=== PATIENT | male | born 1940 | race Two or more races ===

== ENCOUNTER 2022-04-15 06:48 | Day surgery (SDC) | payer MEDICARE, MEDICAID ==
[2022-04-14 10:57] LABS: Basophils # (auto) 0 10 ^3/uL (0-0.2); Basophils % (auto) 0.6 % (0.0-2.0); Eosinophils # (auto) 0.1 10 ^3/uL (0-0.8); Eosinophils % (auto) 1.8 % (0.0-7.0); Hematocrit 35.1 % (41.0-53.0); Hemoglobin 11.9 g/dL (13.5-17.5); Lymphocytes # (auto) 1.3 10 ^3/uL (0.4-5.4); Mean Corpuscular Hemoglobin 31.4 pg (28.0-32.0); Mean Corpuscular Volume 92.3 fL (80.0-100.0); Monocytes # (auto) 0.3 10 ^3/uL (0-1.3); Monocytes % (auto) 5.2 % (0.0-12.0); Neutrophils # (auto) 4.9 10 ^3/uL (1.6-8.6); Neutrophils % (auto) 73.4 % (37.0-80.0); Nucleated Red Blood Cells % 0.1 %; White Blood Cell 6.7 10^3/uL (4.4-10.8)
[2022-04-14 10:59] LABS: Urine Bacteria NONE SEEN /hpf (None Seen); Urine Blood Negative /uL (Negative); Urine Hyaline Cast MANY /lpf (0 - 2); Urine Specific Gravity 1.017 (1.001-1.035); Urine WBC 1 /hpf (0 - 3)
[2022-04-14 11:16] LABS: INR 0.97 (0.9-1.15); Partial Thromboplastin Time 26.8 sec (24.6-33.4)
[2022-04-14 12:13] LABS: Potassium 5.4 mmol/L (3.5-5.1)
[2022-04-14 12:34] LABS: BUN/Creatinine Ratio 15.9; Bilirubin, Total 0.6 mg/dL (0.2-1.0); Calcium 8.9 mg/dL (8.5-10.1); Total Protein 7.5 g/dL (6.4-8.2)
[~2022-04-15] VITALS: Ht 177.8 cm; Wt 86.2 kg
[~2022-04-15 06:48] MED LIST: ATOR10TA52 PO; INSLANTI SC; METF-489 PO; MULT-777 OR; TAMS0.4C36 PO
[2022-04-15] MEDS ORDERED: ONDANSETRON HCL 4 MG/2 ML VIAL ONE (07:52)
[2022-04-15] MEDS ORDERED: DexAMETHasone SOD PHOS 10MG/1ML VIAL INJ ONE (07:52)
[2022-04-15] MEDS ORDERED: PROPOFOL 10 MG/ML 20 ML IV ONE (07:52)
[2022-04-15] MEDS ORDERED: GLYCOPYRROLATE 0.2 MG/ML 1ML VIAL ONE (07:52)
[2022-04-15] MEDS ORDERED: KETOROLAC TROMETH 30 MG/ML 1ML VIAL ONE (07:52)
[2022-04-15 08:30] LABS: BUN/Creatinine Ratio 15.8; Calcium 8.9 mg/dL (8.5-10.1); Potassium 4.2 mmol/L (3.5-5.1)
[2022-04-15] MEDS ORDERED: CIPROFLOXACIN 400MG/200ML 200 ML IV ONE (08:34)
[2022-04-15] MEDS ORDERED: LIDOCAINE 2% JELLY 11ml (GLYDO) ONE (08:36)
[2022-04-15] MEDS ORDERED: SODIUM CHLORIDE LOCK 10 ML ONE ×2 (08:53→09:09)
[2022-04-15] MEDS ORDERED: ePHEDrine SULFATE 50 MG/ML AMP ONE (09:09)
[2022-04-15] MEDS ORDERED: fentaNYL CITRATE 100 MCG/2 ML VL ONE (09:20)
[2022-04-15 11:30] VITALS: BP 122/64
== END 2022-04-15 11:35 | disposition home or self-care (01) ==
LOC: SUR 06:48
PROVIDERS: ATTEND Urology
DX: N40.0 Benign prostatic hyperplasia without lower urinary tract symptoms (principal); N30.80 Other cystitis without hematuria; I10 Essential (primary) hypertension; E78.5 Hyperlipidemia, unspecified; E11.9 Type 2 diabetes mellitus without complications; Z72.89 Other problems related to lifestyle; F10.90 Alcohol use, unspecified, uncomplicated; Z79.4 Long term (current) use of insulin; Z79.84 Long term (current) use of oral hypoglycemic drugs; Z98.890 Other specified postprocedural states; Z79.899 Other long term (current) drug therapy; Z20.822 Contact with and (suspected) exposure to COVID-19
CPT/HCPCS: 36415; 52214; 52601; 80048; 80053; 81001; 82962; 85025; 85610; 85730; 87086; 88305; 88342; J0744; J1100; J2405; J2704; J3010; U0003; J1885

== ENCOUNTER 2023-11-16 20:01 | Inpatient (IN) | payer OTHER, MEDICAID ==
[~2023-11-16] VITALS: Ht 180.3 cm; Wt 72.6 kg
[~2023-11-16 20:01] MED LIST changes: -TAMS0.4C36 PO; +TAMS0.4C39 PO
[2023-11-16] MEDS: SODIUM CHLORIDE 0.9% 2,000 ML IV ONE (20:30)
[2023-11-16] MEDS: InsuLIN REG 1unit/0.01ml Soln (100units/ml) IV ONE (20:30)
[2023-11-16 21:13] LABS: Basophils # (auto) 0.1 10 ^3/uL (0-0.2); Basophils % (auto) 0.7 % (0.0-2.0); Eosinophils # (auto) 0.1 10 ^3/uL (0-0.8); Eosinophils % (auto) 0.8 % (0.0-7.0); Hematocrit 35.6 % (41.0-53.0); Hemoglobin 11.8 g/dL (13.5-17.5); Lymphocytes # (auto) 0.7 10 ^3/uL (0.4-5.4); Lymphocytes % (auto) 4.4 % (10.0-50.0); Mean Corpuscular Hemoglobin 31.8 pg (28.0-32.0); Mean Corpuscular Hgb Conc. 33.1 g/dL (32.0-36.0); Monocytes # (auto) 1.1 10 ^3/uL (0-1.3); Monocytes % (auto) 6.5 % (0.0-12.0); Neutrophils # (auto) 14.2 10 ^3/uL (1.6-8.6); Neutrophils % (auto) 87.6 % (37.0-80.0); Platelet Count (auto) 235 10^3/uL (140-450); Red Blood Cells 3.71 10^6/uL (4.5-5.90); Red Cell Distribution Width 13.2 % (11.8-14.3); White Blood Cell 16.2 10^3/uL (4.4-10.8)
[2023-11-16 21:32] LABS: Alanine Aminotransferase 14 U/L (7-40); Albumin 4.1 g/dL (3.2-4.8); Alkaline Phosphatase 78 U/L (46-116); Anion Gap 7 (5-15); Aspartate Aminotransferase 11 U/L (13-40); BUN/Creatinine Ratio 20.2 (10.0-20.0); Bilirubin, Total 0.8 mg/dL (0.2-1.0); Blood Urea Nitrogen 44 mg/dL (9-23); Calcium 9.4 mg/dL (8.7-10.4); Carbon Dioxide 20 mmol/L (20-30); Chloride 97 mmol/L (98-107); Sodium 124 mmol/L (136-145); Total Protein 6.6 g/dL (5.7-8.2)
[2023-11-16 21:45] LABS: Glucose 532 mg/dL (74-106); Potassium 5.7 mmol/L (3.5-5.1)
[2023-11-16 23:08] VITALS: PULSE 80; RESP 17; O2SAT 95
[2023-11-16] MEDS: HYDROcodone-ACET 5/325MG TAB PO ONE (23:59)
[2023-11-17] MEDS: ASPirin 325 MG TAB PO ONE (00:42)
[2023-11-17] MEDS: ENOXAPARIN SOD 40 MG/0.4 ML SYRINGE SC ONE (00:42)
[2023-11-17] MEDS: ENOXAPARIN SOD 30 MG/0.3 ML SYRINGE SC ONE (00:42)
[2023-11-17 07:11] LABS: Calcium 8.9 mg/dL (8.7-10.4); Chloride 105 mmol/L (98-107); Potassium 4.3 mmol/L (3.5-5.1)
[2023-11-17 07:12] LABS: Anion Gap 5 (5-15); Carbon Dioxide 23 mmol/L (20-30)
[2023-11-17 07:17] LABS: BUN/Creatinine Ratio 27.2 (10.0-20.0); Blood Urea Nitrogen 44 mg/dL (9-23); Glucose 97 mg/dL (74-106)
[2023-11-17 07:18] LABS: Sodium 133 mmol/L (136-145)
[2023-11-17] MEDS ORDERED: ACETAMINOPHEN 325 MG TAB PO PRN (07:45)
[2023-11-17] MEDS: SODIUM CHLORIDE 0.9% 2,000 ML IV ONE (07:45)
[2023-11-17] MEDS ORDERED: DOCUSATE SOD 100 MG CAP PO PRN (07:45)
[2023-11-17] MEDS ORDERED: DEXTROSE (50%) 50ML SYRG IV PRN (07:45)
[2023-11-17] MEDS ORDERED: MORPHINE SULFATE INJ 2 MG/ml SYRG IV PRN (07:45)
[2023-11-17] MEDS ORDERED: NITROGLYCERIN 0.4 MG SL TAB SL PRN ×2 (07:45)
[2023-11-17] MEDS: SODIUM CHLORIDE 0.9% 1,000 ML IV ONE ×2 (08:23→10:43)
[2023-11-17] MEDS: cefTRIAXone 1GM/50ML D5W 50 ML IV ONE (08:23)
[2023-11-17] MEDS: PANTOPRAZOLE 40 MG TAB PO ONE (09:17)
[2023-11-17] MEDS: ENOXAPARIN SOD 40 MG/0.4 ML SYRINGE SC SCH (09:17)
[2023-11-17] MEDS: AZITHROMYCIN 500MG/ 250ML 250 ML IV ONE (09:18)
[2023-11-17] MEDS: ONDANSETRON HCL 4 MG/2 ML VIAL IV PRN (09:28)
[2023-11-17 09:33] VITALS: PULSE 70; RESP 15; O2SAT 96
[2023-11-17] MEDS: ASPirin 81 mg TAB PO SCH (10:42)
[2023-11-17] MEDS: INSULIN LANTUS (GLARGINE) 1 /0.01ml (100units/ml) SC SCH (10:45)
[2023-11-17] MEDS: ACCU-CHEK COMFORT CURVE STRIP VI SCH (12:24)
[2023-11-17] MEDS: InsuLIN REG 1unit/0.01ml Soln (100units/ml) SC SCH (12:29)
[2023-11-17 12:38] LABS: Basophils # (auto) 0 10 ^3/uL (0-0.2); Basophils % (auto) 0.4 % (0.0-2.0); Eosinophils # (auto) 0.3 10 ^3/uL (0-0.8); Eosinophils % (auto) 2.7 % (0.0-7.0); Hematocrit 32.8 % (41.0-53.0); Hemoglobin 11.3 g/dL (13.5-17.5); Lymphocytes # (auto) 0.6 10 ^3/uL (0.4-5.4); Lymphocytes % (auto) 5.2 % (10.0-50.0); Mean Corpuscular Hemoglobin 32.5 pg (28.0-32.0); Mean Corpuscular Hgb Conc. 34.5 g/dL (32.0-36.0); Mean Corpuscular Volume 94.2 fL (80.0-100.0); Monocytes # (auto) 0.7 10 ^3/uL (0-1.3); Monocytes % (auto) 5.8 % (0.0-12.0); Neutrophils # (auto) 9.7 10 ^3/uL (1.6-8.6); Neutrophils % (auto) 85.9 % (37.0-80.0); Nucleated Red Blood Cells % 0.1 %; Platelet Count (auto) 189 10^3/uL (140-450); Red Blood Cells 3.49 10^6/uL (4.5-5.90); Red Cell Distribution Width 13.1 % (11.8-14.3); White Blood Cell 11.3 10^3/uL (4.4-10.8)
[2023-11-17 12:49] LABS: Chloride 105 mmol/L (98-107); Potassium 4.5 mmol/L (3.5-5.1); Sodium 133 mmol/L (136-145)
[2023-11-17 12:50] LABS: Anion Gap 5 (5-15); Calcium 8.7 mg/dL (8.7-10.4); Carbon Dioxide 23 mmol/L (20-30)
[2023-11-17 12:55] LABS: BUN/Creatinine Ratio 25.9 (10.0-20.0); Blood Urea Nitrogen 38 mg/dL (9-23); Glucose 164 mg/dL (74-106)
[2023-11-17 13:24] LABS: Urine Bacteria FEW /hpf (None Seen); Urine Blood Negative /uL (Negative); Urine Clarity Clear (Clear); Urine Color Yellow (Yellow); Urine Protein, UAD TRACE (Negative); Urine Specific Gravity 1.014 (1.001-1.035); Urine Urobilinogen Normal (Negative); Urine WBC 1 /hpf (0 - 3)
[2023-11-17 14:04] VITALS: BP 110/64; PULSE 66; RESP 18; TEMP 97.8; O2SAT 92
[2023-11-17] MEDS: HYDROcodone-ACET 5/325MG TAB PO PRN (14:30)
[2023-11-18 08:06] LABS: AFP Serum Tumor Marker 2.8 ng/mL (0.0-6.4)
== END 2023-11-17 17:18 | disposition home or self-care (01) | DRG 435 ==
LOC: ER 20:01 → TELE 11-17 07:56 → TELE-WESTW 11-17 13:56
PROVIDERS: ADMIT Nurse Practitioner; ATTEND Nurse Practitioner
DX: C25.9 Malignant neoplasm of pancreas, unspecified (principal); E11.10 Type 2 diabetes mellitus with ketoacidosis without coma; N17.0 Acute kidney failure with tubular necrosis; C78.7 Secondary malignant neoplasm of liver and intrahepatic bile duct; C78.00 Secondary malignant neoplasm of unspecified lung; K59.00 Constipation, unspecified; B19.20 Unspecified viral hepatitis C without hepatic coma; I25.10 Atherosclerotic heart disease of native coronary artery without angina pectoris; N40.0 Benign prostatic hyperplasia without lower urinary tract symptoms; E86.0 Dehydration; I10 Essential (primary) hypertension; M54.9 Dorsalgia, unspecified; Z79.4 Long term (current) use of insulin; Z79.899 Other long term (current) drug therapy; Z79.84 Long term (current) use of oral hypoglycemic drugs; Z90.79 Acquired absence of other genital organ(s); Z80.0 Family history of malignant neoplasm of digestive organs
CPT/HCPCS: 36415; 71045; 74176; 80048; 80053; 81001; 82105; 82378; 82962; 83036; 84484; 85025; 86301; 93005; 93306; 96374; 99291; G0378; J1815; J2405